=== PATIENT | male | born 1960 | race Two or more races ===

== ENCOUNTER 2019-09-18 14:15 | Inpatient (IN) | payer OTHER ==
[~2019-09-18] VITALS: Ht 185.4 cm; Wt 115.7 kg
[2019-09-18] MEDS ORDERED: FORTAMET1000 MG PO (15:49)
[2019-09-26] MEDS ORDERED: ELIQUIS2.5 MG PO (15:12)
[2019-09-26] MEDS ORDERED: DUI500 PO (15:12)
[2019-09-26] MEDS ORDERED: PERCOCET 5-3251 EACH PO (15:12)
== END 2019-09-26 16:08 | disposition home or self-care (01) | DRG 470 ==
LOC: EDSTATUS 14:15 → ADM 14:15 → SURH 09-24 07:00 → O/R 09-24 08:35 → SURH 09-24 14:15 → SURG 09-24 21:47
PROVIDERS: ADMIT Orthopaedic Surgery; ATTEND Orthopaedic Surgery
PROC: 0MNN0ZZ Release Right Knee Bursa and Ligament, Open Approach (ICD-10-PCS; 2019-09-24)
PROC: 0SRC0J9 Replacement of Right Knee Joint with Synthetic Substitute, Cemented, Open Approach (ICD-10-PCS; principal; 2019-09-24 07:00)
DX: M17.11 Unilateral primary osteoarthritis, right knee (principal); M22.11 Recurrent subluxation of patella, right knee; D64.9 Anemia, unspecified; I10 Essential (primary) hypertension; E11.9 Type 2 diabetes mellitus without complications; Z79.4 Long term (current) use of insulin; Z03.818 Encounter for observation for suspected exposure to other biological agents ruled out